=== PATIENT | male | born 1955 | race Caucasian/White ===

== ENCOUNTER 2017-06-26 11:51 | Emergency (ER) | payer SELFPAY, OTHER | END 2017-06-26 11:53 | disposition left against medical advice (07) | LOC: FTE 11:53 | DX: Z53.21 Procedure and treatment not carried out due to patient leaving prior to being seen by health care provider (principal) ==

== ENCOUNTER 2017-07-02 13:38 | Emergency (ER) | payer OTHER | END 2017-07-02 14:46 | disposition home or self-care (01) | LOC: E/R 13:38 | DX: R05 Cough (principal); R09.89 Other specified symptoms and signs involving the circulatory and respiratory systems | CPT/HCPCS: 99283; Z7502 ==